=== PATIENT | male | born 1970 | race Caucasian/White ===

== ENCOUNTER 2017-07-25 18:55 | Emergency (ER) | payer OTHER ==
[~2017-07-25] VITALS: Ht 185.4 cm; Wt 83.4 kg
[2017-07-25 19:00] VITALS: TEMP 36.7; Ht 185.4 cm; Wt 83.4 kg
[2017-07-25] MEDS ORDERED: CETI10TA84 PO (19:21)
[2017-07-25] MEDS ORDERED: XYLOCAINE 1%/SOD BICARB 20 ML VIAL INFIL ONE (19:28)
[2017-07-25] MEDS ORDERED: DIPHTHERIA/TETANUS/PERTUSSIS 0.5 ML SYR/VIAL IM. ONE (19:45)
--- NOTE | 2017-07-25 20:08 | DIAGNOSTIC IMAGING REPORT ---
LEFT FINGER(S) MIN 2 VIEWS ROUTINE CLINICAL HISTORY: 47 years-old Male presenting with l 3rd digit, left third finger laceration . TECHNIQUE: Frontal, oblique, and lateral views of the left third finger were obtained. COMPARISON: None. FINDINGS: Soft tissue defect at the distal aspect of the left third finger with subjacent osseous defect of the tuft of the distal phalanx. No acute subluxation at the distal interphalangeal joint. No other fracture is evident. No radiopaque foreign body. IMPRESSION: Soft tissue defect with underlying osseous defect of the tuft of the left third finger. Electronically signed by: Wilbert Ferreira M.D. 07/25/2017 8:07 PM Dictated Date/Time: 07/25/2017 8:05 PM
[2017-07-25] MEDS ORDERED: CEFAZOLIN SOD 1000MG/55 ML D5W IV STA (20:16)
[2017-07-25] MEDS ORDERED: CEPH500C PO (22:10)
[2017-07-25] MEDS ORDERED: OXYCODONE IR HOME PACK PO ONE (22:15)
[2017-07-25 22:32] VITALS: BP 111/74; PULSE 83; O2SAT 98
--- NOTE | 2017-07-25 23:49 | EMERGENCY ROOM VISIT NOTE ---
ED Visit Note First contact with patient: 22:08 LACERATION REPAIR: Verbal consent was obtained from the patient. Patient had received a prior digital block by the attending physician, however upon my assessment this had worn off. Therefore a second digital block was performed at the base of the left third finger. After achieving appropriate anesthesia with digital block, the laceration site was cleansed with chlorhexidine. The wound was copiously irrigated with sterile saline. A finger tourniquet was applied to the left third finger. The wound edges noted to be irregular and macerated, with loss of the distal tip of the finger and partial amputation into the distal nail. Loose closure was performed with 6 simple interrupted sutures of 5-0 Ethilon were placed with adequate wound closure, bleeding controlled after removal of the finger tourniquet, with brisk return of cap refill. Patient tolerated the procedure well. Neurovascularly intact postprocedure. Bacitracin and occlusive dressing placed. Finger splint applied to the left third finger. On further examination of the patient's left hand, there was also a superficial abrasion noted to the tip of the distal second finger. No closure indicated. This wound was cleansed with normal saline and Betadine. Bacitracin ointment and occlusive dressing applied. Patient tolerated the procedure well.
--- NOTE | 2017-07-26 01:28 | EMERGENCY ROOM VISIT NOTE ---
History Report prepared by Nicholas: Joslyn Forman Under the Supervision of: Mike SheaO. 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 He grabbed underneath with his hand and cut his finger. The patient states that it is very painful. He rates his pain as a 10/10 in severity. He had a syncopal episode in triage upon arrival. The patient is unsure if his tetanus is up to date. Patient denies any tingling or numbness. No weakness in the extremity. No other complaints. Denies any chest pain, shortness breath , nausea vomiting or diarrhea. He is a right hand dominant drafter electronic. Source of History: patient Onset: 15 minutes ULTRAS[employer]IC HAND SOLDERER Position: finger(s) Symptom Intensity: 10/10 Quality: other (laceration) Timing: other (episode) Associated Symptoms: + LOC, No fevers, No headache, No chest pain, No SOB, No nausea, No vomiting, No melena, No hematochezia, No diarrhea, No urinary symptoms Review of Systems See HPI for pertinent positives & negatives. A total of 10 systems reviewed and were otherwise negative. Past Medical & Surgical Medical Problems: (1) Concussion Family History No pertinent history stated. Social History Smoking Status: Never Smoker Marital Status: Housing Status: lives with significant other Occupation Status: employed Current/Historical Medications Scheduled Cephalexin Monohydrate (Keflex), 500 MG PO QID Cetirizine (Zyrtec), 10 MG PO DAILY Allergies Uncoded Allergies: BEE STINGS (Allergy, Severe, ANAPHYLAXIS, 07/25/17) PCN (Allergy, Severe, ANAPHYLAXIS, 07/25/17) Physical Exam Vital Signs Date Time Temp Pulse Resp B/P (MAP) Pulse Ox O2 Delivery O2 Flow Rate FiO2 07/25/17 22:32 83 18 111/74 98 07/25/17 21:07 79 18 131/86 96 Room Air 07/25/17 19:19 93 07/25/17 19:09 99 28 111/75 98 Room Air 07/25/17 19:00 36.7 110 16 Room Air Physical Exam GENERAL: alert, well nourished, non-toxic, laying flat in bed, pale, disheveled , very anxious appearing EYE EXAM: normal conjunctiva, PERRL and EOM's grossly intact OROPHARYNX: no exudate, no erythema, lips, buccal mucosa, and tongue normal and mucous membranes are moist NECK: supple, no nuchal rigidity, no adenopathy, non-tender LUNGS: Clear to auscultation. Normal chest wall mechanics HEART: Tachycardic, no murmurs, S1 normal and S2 normal ABDOMEN: abdomen soft, non-tender, normo-active bowel sounds, no masses, no rebound or guarding. UPPER EXTREMITIES: Left third digit with avulsion to the distal 4th portion of the DIP. Flexion/extension intact. Gross sensation intact. No obvious exposed bone LOWER EXTREMITIES: No pitting edema. NEURO EXAM: Normal sensorium, cranial nerves II-XII grossly intact, normal speech, no gross weakness of arms, no gross weakness of legs. Medical Decision & Procedures ER Provider Diagnostic Interpretation: Radiology results as stated below per my review and the radiologist's interpretation: LEFT FINGER(S) MIN 2 VIEWS ROUTINE CLINICAL HISTORY: 47 years-old Male presenting with l 3rd digit, left third finger laceration . TECHNIQUE: Frontal, oblique, and lateral views of the left third finger were obtained. COMPARISON: None. FINDINGS: Soft tissue defect at the distal aspect of the left third finger with subjacent osseous defect of the tuft of the distal phalanx. No acute subluxation at the distal interphalangeal joint. No other fracture is evident. No radiopaque foreign body. IMPRESSION: Soft tissue defect with underlying osseous defect of the tuft of the left third finger. Electronically signed by: Wilbert Ferreira M.D. 07/25/2017 8:07 PM Dictated Date/Time: 07/25/2017 8:05 PM Medications Administered Medications (Trade) Dose Ordered Sig/Maureen Route Start Time Stop Time Status Last Admin Dose Admin Diphtheria/ Pertussis/Tetanus Vacc (Adacel Inj) 0.5 ml ONCE ONCE IM. 07/25/17 19:45 07/25/17 19:46 DC 07/25/17 20:58 0.5 ML Cefazolin Sodium (Ancef 1000mg/55 ml D5W) 2,000 mg NOW STAT IV 07/25/17 20:16 07/25/17 20:17 DC 07/25/17 20:58 2,000 MG Oxycodone HCl (Roxicodone Immediate Rel 5MG Home Pack) 1 homepack UD ONCE PO 07/25/17 22:15 07/25/17 22:16 DC 07/25/17 22:15 1 HOMEPACK ED Course ED COURSE: Vital signs were reviewed and showed tachycardic. The patients medical record was reviewed The above diagnostic studies were performed and reviewed. ED treatments and interventions as stated above. 1921: The patient was evaluated in room C7. A complete history and physical examination was performed. 1927: Lidocaine HCl 4 ml IV 1944: Adacel 0.5 ml IM 2015: Cefazolin Sodium 2000 mg IV 2024: I discussed the case with Dr. De Santiago of [facility]. We agreed on the treatment plan. 2045: I updated the patient on the treatment plan. He verbalized agreement. JOHNNY Coombs will repair the patient's laceration. Please see her note for further details. 2201: Upon reevaluation, the patient is feeling better and resting comfortably. I discussed my findings with the patient and he understands and agrees with the treatment plan. Based on the patients age, coexisting illnesses, exam and lab findings the decision to treat as an outpatient was made. The patient remained stable while under my care. The patient appeared well at the time of discharge. 5: Oxycodone HCl 5 mg PO 1 homepack Medical Decision Differential diagnosis: Etiologies such as fracture, dislocation, neurovascular compromise, compartment syndrome, soft tissue injury, as well as others were entertained. Patient is a 47-year-old male who is right-hand dominant presents to the ER following getting his left third digit cut by a lawnmower. Patient is no other complaints. He did pass out in triage when they evaluated the wound. He notes he had a tunnel pain felt very nauseous and lightheaded. Patient is not limited to this time. The third digit was numbed by myself. X-rays were obtained. Distal fracture/avulsion of the phalanx. No excessive bleeding. This [employer] updated. Discussed with orthopedics who recommends ossea antibiotics and following up with hand tomorrow. Patient was given Ancef. Wound was washed out by my PA and dressed. Patient was discharged to orthopedic hand tomorrow morning. Patient was given Keflex and a short course of OxyIR. Discussed with Pt concerning signs and symptoms to watch out for. Pt was instructed to follow up with their PCP and discussed with the patient their option to return to the ED at anytime for persistent or worsening symptoms. The appropriate anticipatory guidance and out-patient management, including indications for return to the emergency department, were explained at length to the patient and understood. [place] Drug Monitoring Program Search Results: patient reviewed within database, no issues identified Medication Reconcilliation Current Medication List: was personally reviewed by me Blood Pressure Screening Patient's blood pressure: Normal blood pressure Consults Time Called: 2019 Consulting Physician: Dr. De Santiago Returned Call: 2024 I discussed the case with Dr. De Santiago of [facility]. We agreed on the treatment plan. Impression Primary Impression: Finger fracture, left Additional Impression: Laceration Scribe Attestation The scribe's documentation has been prepared under my direction and personally reviewed by me in its entirety. I confirm that the note above accurately reflects all work, treatment, procedures, and medical decision making performed by me. Departure Information Dispostion Home / Self-Care Prescriptions Cephalexin Monohydrate (Keflex) 500 Mg Cap 500 MG PO QID, #28 CAP Prov: Abelino Ruiz, DO 07/25/17 Referrals No Doctor, Assigned Forms HOME CARE DOCUMENTATION FORM, IMPORTANT VISIT INFORMATION Patient Instructions ED Laceration All, My [facility] Additional Instructions Please follow up with [facility] with in the next 24 hours. Any worsening of your symptoms, please return to the ED immediately. This includes any fevers greater than 100.4, worsening pain, worsening redness, tingling or numbness, or any other concerning signs or symptoms from your standpoint. Please take antibiotics as prescribed. You were given medications during this visit that will inhibit your ability to drive, operate machinery and work. Please do NOT drive, operate machinery or work for the next 12hrs. You were also given a prescription for a narcotic/oxy ir. While taking this medication you should also not drive, operate machinery and or work. Problem Qualifiers Primary Impression: Finger fracture, left Encounter type: initial encounter Finger: middle finger Fracture type: open Phalanx: distal Fracture alignment: nondisplaced Qualified Codes: S62.663B - Nondisplaced fracture of distal phalanx of left middle finger, initial encounter for open fracture
== END 2017-07-25 22:33 | disposition home or self-care (01) ==
LOC: C.EDB 18:56 → C.EDC 22:33
DX: S62.663B Nondisplaced fracture of distal phalanx of left middle finger, initial encounter for open fracture (principal); S61.213A Laceration without foreign body of left middle finger without damage to nail, initial encounter; W45.8XXA Other foreign body or object entering through skin, initial encounter; Z23 Encounter for immunization